=== PATIENT | female | born 1995 | race Caucasian/White ===

== ENCOUNTER 2016-04-18 14:27 | Inpatient (IN) | payer OTHER ==
[2016-04-18] MEDS ORDERED: LIDOCAINE 1% (PF) 10 MG/ML (30 ML SDV) SQ PRN (15:00)
[2016-04-18] MEDS ORDERED: METHYLERGONOVINE 0.2 MG/ML 1 ML AMP IM PRN (15:00)
[2016-04-18] MEDS ORDERED: CARBOPROST TROMETHAMINE 250 MCG/ML 1 ML AMP IM PRN (15:00)
[2016-04-18] MEDS ORDERED: OXYTOCIN 30 UNITS/500 ML NS 30 UNIT in SALINE 1 500ML.BAG IV SCH (15:00)
[2016-04-18] MEDS ORDERED: OXYTOCIN 10 UNIT/ML 1 ML VIAL IM PRN (15:00)
[2016-04-18] MEDS ORDERED: TERBUTALINE 1 MG/ML VIAL SQ PRN (15:00)
[2016-04-18 15:19] LABS: Appearance,Urine Clear (Clear); Bilirubin,Urine Negative (Negative); Glucose,Urine (UA) Negative (Negative); Ketones,Urine Negative (Negative); Leukocyte Esterase,Urine Negative (Negative); Nitrite,Urine Negative (Negative); Protein,Urine Negative (Negative); UA Billing (MACRO vs. MICRO) CHEM; Urobilinogen,Urine <2.0 mg/dL (<2.0)
[2016-04-18 15:31] LABS: ALT 28 U/L (9-52); AST 19 U/L (14-36); Blood Urea Nitrogen 8 mg/dL (7-17); LDH 401 U/L (313-618); Non-African American GFR(MDRD) >60 (>60 ml/min/1.73 sqM); Uric Acid 5.8 mg/dL (3.7-7.4)
[2016-04-18 15:47] LABS: Basophils % (A) 0 %; CH 26.9; CHCM 33.2; Eosinophils # (A) 0.1 k/uL (0-0.7); Eosinophils % (A) 1 %; HCT 37.7 % (34.0-46.0); HDW 2.71; HGB 12.4 gm/dL (11.4-16.0); Luc # (Auto) 0.21; Luc % (Auto) 2; Lymphocytes # (A) 1.1 k/uL (1.0-4.8); Lymphocytes % (A) 9 %; MCH 26.7 pg (25.0-35.0); MCHC 32.8 g/dL (31.0-37.0); MCV 81.2 fL (80.0-100.0); Mean Platelet Volume 7.2; Monocytes # (A) 0.6 k/uL (0-1.0); Monocytes % (A) 5 %; Neutrophils # (A) 9.6 k/uL (1.3-7.7); Neutrophils % (A) 83 %; RBC 4.64 m/uL (3.80-5.40); RDW 13.9 % (11.5-15.5); WBC 11.6 k/uL (3.8-10.6); WBC (Perox) 12.61
[2016-04-18 16:03] LABS: INR 0.9 (<1.1); Partial Thromboplastin Time 24.4 sec (22.0-30.0); Prothrombin Time 9.5 sec (9.0-12.0)
[2016-04-18] MEDS: LACTATED RINGERS 1,000 ML IV SCH ×2 (16:05→22:50)
[2016-04-18 17:37] VITALS: BMI 44.3
--- NOTE | 2016-04-18 18:26 | P.HPOB ---
History of Present Illness H&P Date: 04/18/16 Chief Complaint: Induction of labor 20 year old presents at 38 weeks for induction of labor. She has Gestational hypertension and by ACOG guidelines should be delivered at this time. She has also been complaining of headaches but had not protein in her urine. HEr cervix is 1-2/70/-2 and she is not kelli. heart tones 135 -140 with moderate variability and reactive. Review of Systems All systems: negative Constitutional: Denies chills, Denies fever Eyes: denies blurred vision, denies pain Ears, nose, mouth and throat: Denies headache, Denies sore throat Cardiovascular: Denies chest pain, Denies shortness of breath Respiratory: Denies cough Gastrointestinal: Denies abdominal pain, Denies diarrhea, Denies nausea, Denies vomiting Genitourinary: Denies dysuria, Denies hematuria Musculoskeletal: Denies myalgias Integumentary: Denies pruritus, Denies rash Neurological: Denies numbness, Denies weakness Psychiatric: Denies anxiety, Denies depression Endocrine: Denies fatigue, Denies weight change Past Medical History Past Medical History: No Reported History Additional Past Medical History / Comment(s): Obstetric history: This is her first and she's had care with me since 13 weeks gestation. Her blood type is O+, antibodies negative, rubella immune, RPR nonreactive, hepatitis B-, HIV nonreactive. She had a normal anatomy ultrasound and her 1 hour glucose tolerance test was abnormal, her three-hour was normal. GBS negative. Over the last 3 weeks she started to have increasing blood pressures of 140s over 70s and today had 150/88. She has been complaining of headaches over the last several days but all preeclamptic labs are normal. History of Any Multi-Drug Resistant Organisms: None Reported Past Surgical History: Cholecystectomy, Orthopedic Surgery (Bone tumor removed, benign) Past Anesthesia/Blood Transfusion Reactions: No Reported Reaction Past Psychological History: No Psychological Hx Reported Smoking Status: Former smoker - Past Family History Mother Family Medical History: Diabetes Mellitus, Hypertension Medications and Allergies Home Medications Medication Instructions Recorded Confirmed Type Pnv with Ca,No.72/Iron/FA 1 each PO 04/18/16 History [ Plus Tablet] Allergies Allergy/AdvReac Type Severity Reaction Status Date / Time No Known Allergies Allergy Verified 04/18/16 14:33 Exam Osteopathic Statement: *. No significant issues noted on an osteopathic structural exam other than those noted in the History and Physical/Consult. - Vital Signs Vital signs: Vital Signs Temp Pulse Resp BP Pulse Ox 04/18/16 15:34 97.0 F L 68 16 147/74 99 Intake and Output 04/18/16 04/18/16 04/18/16 06:59 14:59 22:59 Other: Weight 128.367 kg 128.367 kg Patient Weight 04/19/16 06:59 Weight 128.367 kg Heart: Regular rate and rhythm Lungs: Clear to auscultation bilaterally Abdomen: Soft, nontender Extremities: Negative Homans sign Results Result Diagrams: 04/18/16 15:07 04/18/16 15:05 Abnormal Lab Results - Last 24 Hours (Table) 04/18/16 Range/Units 15:07 WBC 11.6 H (3.8-10.6) k/uL Neutrophils # 9.6 H (1.3-7.7) k/uL Assessment and Plan (1) Gestational hypertension Status: Acute Plan: 1. Induction of labor with amniotomy and Pitocin 2. Anticipate normal vaginal delivery
[2016-04-19] MEDS ORDERED: AMPICILLIN 2,000 MG in SODIUM CHLORIDE 0.9% 100 ML IVPB ONE (03:00)
[2016-04-19] MEDS ORDERED: BUTORPHANOL 1 MG/ML 1 ML VIAL IV PRN (03:13)
[2016-04-19] MEDS ORDERED: BUPIVACAINE (PF) 0.25% 30 ML VIAL ONE (05:02)
[2016-04-19] MEDS ORDERED: fentaNYL (PF) 50 MCG/ML 5 ML AMP ONE (05:02)
[2016-04-19] MEDS ORDERED: SODIUM CHLORIDE 0.9% 100 ML BAG ONE (05:02)
[2016-04-19] MEDS: LACTATED RINGERS 1,000 ML IV SCH (05:08)
[2016-04-19] MEDS ORDERED: HYDROCORTISONE 2.5% RECTAL CREAM 30 GM TUBE RECTAL PRN (06:30)
[2016-04-19] MEDS ORDERED: ACETAMINOPHEN TAB 325 MG TAB PO PRN (06:30)
[2016-04-19] MEDS ORDERED: diphenhydrAMINE 50 MG/ML 1 ML VIAL IVP PRN ×2 (06:30)
[2016-04-19] MEDS ORDERED: Acetaminophen-Codeine 300-30mg TAB PO PRN ×2 (06:30)
[2016-04-19] MEDS ORDERED: OXYTOCIN 30 UNITS/500 ML NS 30 UNIT in SALINE 1 500ML.BAG IV SCH (06:30)
[2016-04-19] MEDS ORDERED: diphenhydrAMINE 25 MG CAP PO PRN (06:30)
[2016-04-19] MEDS ORDERED: SIMETHICONE 80 MG CHEWABLE PO PRN (06:30)
[2016-04-19] MEDS ORDERED: ZOLPIDEM 5 MG TAB PO PRN (06:30)
[2016-04-19] MEDS ORDERED: WITCH HAZEL 1 EACH MED..PAD TOPICAL PRN (06:30)
[2016-04-19] MEDS ORDERED: diphenhydrAMINE 50 MG CAP PO PRN (06:30)
[2016-04-19] MEDS ORDERED: LANOLIN CREAM 5 GM TUBE TOPICAL PRN (06:30)
[2016-04-19] MEDS ORDERED: BENZOCAINE/MENTHOL SPRAY 1 GM/SPRAY AEROSOL TOPICAL PRN (06:30)
--- NOTE | 2016-04-19 06:33 | P.PROBDLV ---
Vaginal Delivery Note - . Vaginal Delivery Note: 20-year-old presents at 38 weeks to my office with elevated blood pressures. Her blood pressures had been elevated the last few weeks and she started to complain of headaches. Due to gestational hypertension and ACOG guidelines she was sent over to the hospital for induction of labor. Her cervix was 2 centers dilated, 70% effaced, -2 station. She is not kelli. heart tones 135-140 with moderate variability and reactive. Amniotomy was performed at 1500, clear fluid noted. Pitocin was also started. She progressed slowly throughout the night and next morning. She did get an epidural and was comfortable. Her cervix was completely dilated at 5:51 AM. She pushed, and delivered a viable female infant at 6:11 AM over midline episiotomy under epidural anesthesia. Head delivered OA, nuchal cord 1 easily reduced, anterior shoulder delivered gentle downward traction followed by posterior shoulder and rest of body. Nose and mouth bulb suctioned, cord clamped and cut, placed mother's abdomen. Apgars 8, 9, weight 6 lbs. 14 oz. Placenta delivered spontaneously, intact with three-vessel cord. The vagina, cervix, perineum inspected. Second degree midline episiotomy was repaired with 2-0 Vicryl and 3-0 Vicryl. Estimated blood loss 150 mL. Mother and baby in stable condition.
[2016-04-19] MEDS ORDERED: AMPICILLIN 1,000 MG in SODIUM CHLORIDE 0.9% 50 ML IVPB SCH (07:00)
[2016-04-19] MEDS: SENNOSIDES-DOCUSATE SODIUM 1 EACH TAB PO SCH ×2 (08:09→21:23)
[2016-04-19] MEDS: IBUPROFEN 600 MG TAB PO PRN ×3 (08:09→21:23)
[2016-04-20] MEDS: IBUPROFEN 600 MG TAB PO PRN (04:15)
--- NOTE | 2016-04-20 08:51 | P.DS ---
Providers Date of admission: 04/18/16 15:00 Expected date of discharge: 04/20/16 Attending physician: Rachael Wood Primary care physician: Stated None - Discharge Diagnosis(es) (1) Gestational hypertension Current Visit: Yes Status: Resolved (2) Normal vaginal delivery Current Visit: Yes Status: Acute Hospital Course: Patient presented to my office with elevated blood pressures. She does have gestational hypertension and underwent a induction of labor for this. She had a normal vaginal delivery an uncomplicated course. She'll be discharged home day #1 in stable condition to follow-up with me in 6 weeks. Plan - Discharge Summary New Discharge Prescriptions: Ibuprofen [Motrin] 600 mg PO Q6HR PRN #30 tab PRN Reason: Mild Pain Or Fever >= 100.5 Discharge Medication List Pnv with Ca,No.72/Iron/FA [ Plus Tablet] 1 each PO 04/18/16 [History] Ibuprofen [Motrin] 600 mg PO Q6HR PRN #30 tab 04/20/16 [Rx] Follow up Appointment(s)/Referral(s): Rachael Wood DO [Doctor of Osteopathic Medicine] - 6 Weeks Discharge Disposition: HOME SELF-CARE
[2016-04-20 08:55] VITALS: BP 136/72; PULSE 63; RESP 16; TEMP 97.7
[2016-04-20] MEDS: SENNOSIDES-DOCUSATE SODIUM 1 EACH TAB PO SCH (09:00)
[2016-04-20] MEDS ORDERED: DIPH,PERTUS(ACELL)TETVAC-LF 0.5 ML VIAL IM ONE (09:40)
== END 2016-04-20 12:18 | disposition home or self-care (01) | DRG 775 ==
LOC: FBPOP 14:27 → 4FBP 15:00
PROVIDERS: ADMIT Obstetrics & Gynecology; ATTEND Obstetrics & Gynecology
PROC: 10E0XZZ Delivery of Products of Conception, External Approach (ICD-10-PCS; principal; 2016-04-19)
PROC: 3E033VJ Introduction of Other Hormone into Peripheral Vein, Percutaneous Approach (ICD-10-PCS; 2016-04-19)
PROC: 10907ZC Drainage of Amniotic Fluid, Therapeutic from Products of Conception, Via Natural or Artificial Opening (ICD-10-PCS; 2016-04-19)
PROC: 0W8NXZZ Division of Female Perineum, External Approach (ICD-10-PCS; 2016-04-19)
PROC: 00HU33Z Insertion of Infusion Device into Spinal Canal, Percutaneous Approach (ICD-10-PCS; 2016-04-19)
DX: O13.4 Gestational [pregnancy-induced] hypertension without significant proteinuria, complicating childbirth (principal); O69.81X0 Labor and delivery complicated by cord around neck, without compression, not applicable or unspecified; Z37.0 Single live birth; Z3A.38 38 weeks gestation of pregnancy; Z87.891 Personal history of nicotine dependence; Z82.49 Family history of ischemic heart disease and other diseases of the circulatory system
CPT/HCPCS: 59025; 81003; 82565; 83615; 84450; 84460; 84520; 84550; 85025; 85610; 85730; 88307; 90715; 99213

== ENCOUNTER 2016-10-28 14:24 | Emergency (ER) | payer OTHER ==
[2016-10-28 14:39] VITALS: BP 146/77; PULSE 67; RESP 20; TEMP 96.9
[2016-10-28] MEDS ORDERED: CYCLOBENZAPRINE 10MG STARTER 3 TAB BTL PO STA (14:52)
--- NOTE | 2016-10-28 15:00 | ED ---
General Adult HPI - General Chief complaint: Back Pain/Injury Stated complaint: back and hip pain Time Seen by Provider: 10/28/16 14:51 Source: patient, RN notes reviewed Mode of arrival: wheelchair Limitations: no limitations - History of Present Illness Initial comments: Patient 21-year-old female with significant past medical history for chronic back pain, who presents emergency room today with a chief complaint of exacerbation of chronic pain. She states that she has had similar symptoms in the past. States woke up this morning had increased tightness in her back is worse with certain movements. She states she felt some pain shot down the right leg. Denies any bowel or bladder incontinence retention. She does admit that she did take one of her [place] that she uses for her chronic back pain with some relief of the symptoms. She denies any bowel or bladder incontinence retention. Denies any saddle anesthesia. Denies any other complaints or symptoms at this time. Patient denies any injury or trauma. Patient denies any recent fever, chills, shortness of breath, chest pain, abdominal pain, nausea or vomiting, numbness or tingling, dysuria or hematuria, constipation or diarrhea, headaches or visual changes, or any other complaints. - Related Data Home Medications Medication Instructions Recorded Confirmed Pnv,Calcium 72/Iron/Folic Acid 1 each PO 04/18/16 [ Plus Tablet] Previous Rx's Medication Instructions Recorded Ibuprofen [Motrin] 600 mg PO Q6HR PRN #30 tab 04/20/16 Cyclobenzaprine [Flexeril] 10 mg PO TID #20 tab 10/28/16 Allergies Allergy/AdvReac Type Severity Reaction Status Date / Time No Known Allergies Allergy Verified 10/28/16 14:39 Review of Systems ROS Statement: Those systems with pertinent positive or pertinent negative responses have been documented in the HPI. ROS Other: All systems not noted in ROS Statement are negative. Past Medical History Past Medical History: No Reported History Additional Past Medical History / Comment(s): Obstetric history: This is her first and she's had care with me since 13 weeks gestation. Her blood type is O+, antibodies negative, rubella immune, RPR nonreactive, hepatitis B-, HIV nonreactive. She had a normal anatomy ultrasound and her 1 hour glucose tolerance test was abnormal, her three-hour was normal. GBS negative. Over the last 3 weeks she started to have increasing blood pressures of 140s over 70s and today had 150/88. She has been complaining of headaches over the last several days but all preeclamptic labs are normal. History of Any Multi-Drug Resistant Organisms: None Reported Past Surgical History: Cholecystectomy, Orthopedic Surgery Past Anesthesia/Blood Transfusion Reactions: No Reported Reaction Past Psychological History: No Psychological Hx Reported Smoking Status: Former smoker Past Alcohol Use History: None Reported Past Drug Use History: None Reported - Past Family History Mother Family Medical History: Diabetes Mellitus, Hypertension General Exam - General Exam Comments Initial Comments: General: The patient is awake and alert, in no distress, and does not appear acutely ill. Eye: Pupils are equal, round and reactive to light, extra-ocular movements are intact. No nystagmus. There is normal conjunctiva bilaterally. No signs of icterus. Ears, nose, mouth and throat: There are moist mucous membranes and no oral lesions. Neck: The neck is supple, there is no tenderness or JVD. Cardiovascular: There is a regular rate and rhythm. No murmur, rub or gallop is appreciated. Respiratory: Lungs are clear to auscultation, respirations are non-labored, breath sounds are equal. No wheezes, stridor, rales, or rhonchi. Gastrointestinal: Soft, non-distended, non-tender abdomen without masses or organomegaly noted. There is no rebound or guarding present. No CVA tenderness. Bowel sounds are unremarkable. Musculoskeletal: Normal ROM, no tenderness. Strength 5/5. Sensation intact. Pulses equal bilaterally 2+. Neurological: A&O x 3. CN II-XII intact, There are no obvious motor or sensory deficits. Coordination appears grossly intact. Speech is normal. Skin: Skin is warm and dry and no rashes or lesions are noted. Psychiatric: Cooperative, appropriate mood & affect, normal judgment. Limitations: no limitations Course Vital Signs 10/28/16 14:36 Temperature 96.9 F L Pulse Rate 67 Respiratory 20 Rate Blood Pressure 146/77 O2 Sat by Pulse 99 Oximetry Disposition Clinical Impression: Acute low back pain Disposition: HOME SELF-CARE Instructions: Acute Low Back Pain (ED) Additional Instructions: Please use medication as discussed. Please follow-up with family doctor in the next 2 days of symptoms have not improved. Please return to emergency room if the symptoms increase or worsen or for any other concerns. Prescriptions: Cyclobenzaprine [Flexeril] 10 mg PO TID #20 tab Referrals: Mathew Moreno DO [Primary Care Provider] - 1-2 days Time of Disposition: 14:59
== END 2016-10-28 15:04 | disposition home or self-care (01) ==
LOC: EC 14:24
DX: M54.5 Low back pain (principal); Z90.49 Acquired absence of other specified parts of digestive tract; Z79.899 Other long term (current) drug therapy; Z87.891 Personal history of nicotine dependence
CPT/HCPCS: 99283

== ENCOUNTER 2018-12-03 21:08 | Emergency (ER) | payer BC, OTHER ==
[2018-12-03 22:26] VITALS: BP 126/76; PULSE 69; TEMP 98.5
[2018-12-03] MEDS ORDERED: HYDROcodone/APAP 5-325MG 1 EACH TAB PO STA (22:56)
[2018-12-03] MEDS ORDERED: DIAZEPAM 5 MG/ML 2 ML INJ IM ONE (22:56)
[2018-12-03 22:57] VITALS: RESP 18
--- NOTE | 2018-12-03 22:57 | ED ---
Back Pain HPI - General Chief Complaint: Back Pain/Injury Stated Complaint: Hip/Back Pain Time Seen by Provider: 12/03/18 22:25 Source: patient Limitations: no limitations - History of Present Illness Initial Comments: 23-year-old female presenting today for chief complaint of low back pain with radiation down right leg x 6 hours. She states earlier today she was attempting to prevent her hair in a pony tail when - Related Data Home Medications Medication Instructions Recorded Confirmed Pnv,Calcium 72/Iron/Folic Acid 1 each PO 04/18/16 [ Plus Tablet] Previous Rx's Medication Instructions Recorded Ibuprofen [Motrin] 600 mg PO Q6HR PRN #30 tab 04/20/16 Cyclobenzaprine [Flexeril] 10 mg PO TID #20 tab 10/28/16 Cyclobenzaprine [Flexeril] 10 mg PO TID PRN 7 Days #21 tab 12/03/18 Allergies Allergy/AdvReac Type Severity Reaction Status Date / Time No Known Allergies Allergy Verified 12/03/18 22:26 Review of Systems ROS Statement: Those systems with pertinent positive or pertinent negative responses have been documented in the HPI. ROS Other: All systems not noted in ROS Statement are negative. Past Medical History Past Medical History: No Reported History Additional Past Medical History / Comment(s): Obstetric history: This is her first and she's had care with me since 13 weeks gestation. Her blood type is O+, antibodies negative, rubella immune, RPR nonreactive, hepatitis B-, HIV nonreactive. She had a normal anatomy ultrasound and her 1 hour glucose tolerance test was abnormal, her three-hour was normal. GBS negative. Over the last 3 weeks she started to have increasing blood pressures of 140s over 70s and today had 150/88. She has been complaining of headaches over the last several days but all preeclamptic labs are normal. History of Any Multi-Drug Resistant Organisms: None Reported Past Surgical History: Cholecystectomy, Orthopedic Surgery Past Anesthesia/Blood Transfusion Reactions: No Reported Reaction Past Psychological History: No Psychological Hx Reported Smoking Status: Former smoker Past Alcohol Use History: None Reported Past Drug Use History: None Reported - Past Family History Mother Family Medical History: Diabetes Mellitus, Hypertension General Exam - General Exam Comments Initial Comments: General: The patient is awake and alert, in no distress, and does not appear acutely ill. Eye: Pupils are equal, round and reactive to light, extra-ocular movements are intact. No nystagmus. There is normal conjunctiva bilaterally. No signs of icterus. Ears, nose, mouth and throat: There are moist mucous membranes and no oral lesions. Neck: The neck is supple, there is no tenderness or JVD. Cardiovascular: There is a regular rate and rhythm. No murmur, rub or gallop is appreciated. Respiratory: Lungs are clear to auscultation, respirations are non-labored, breath sounds are equal. No wheezes, stridor, rales, or rhonchi. Gastrointestinal: [Soft, non-distended, non-tender abdomen without masses or organomegaly noted. There is no rebound or guarding present. No CVA tenderness. Bowel sounds are unremarkable.] Musculoskeletal: Normal ROM, no tenderness. Strength 5/5. Sensation intact. Pulses equal bilaterally 2+. Neurological: A&O x 3. CN II-XII intact, There are no obvious motor or sensory deficits. Coordination appears grossly intact. Speech is normal. Skin: Skin is warm and dry and no rashes or lesions are noted. Psychiatric: Cooperative, appropriate mood & affect, normal judgment. Limitations: no limitations Course Vital Signs 12/03/18 22:23 Temperature 98.5 F Pulse Rate 69 Respiratory 18 Rate Blood Pressure 126/76 O2 Sat by Pulse 98 Oximetry Disposition Clinical Impression: Back strain, Low back pain, Acute exacerbation of chronic low back pain Disposition: HOME SELF-CARE Condition: Good Instructions (If sedation given, give patient instructions): Acute Low Back Pain (ED) Additional Instructions: Please use medication as discussed. Please follow-up with family doctor in the next 2 days. Please return to emergency room if the symptoms increase or worsen or for any other concerns. Prescriptions: Cyclobenzaprine [Flexeril] 10 mg PO TID PRN 7 Days #21 tab PRN Reason: Muscle Spasm Is patient prescribed a controlled substance at d/c from ED?: No Referrals: None,Stated [Primary Care Provider] - 1-2 days Time of Disposition: 23:57
--- NOTE | 2018-12-03 23:54 | XR ---
EXAMINATION TYPE: XR lumbar spine 2 or 3V DATE OF EXAM: 12/03/2018 COMPARISON: NONE HISTORY: Back pain TECHNIQUE: 3 views FINDINGS: Lumbar vertebra have normal alignment. Posterior elements are intact. There is no compressi on fracture. Sacroiliac joints appear normal. I see no bony destructive process. IMPRESSION: Negative lumbar spine exam. No fracture.
== END 2018-12-04 01:56 | disposition home or self-care (01) ==
LOC: EC 21:08
DX: S39.012A Strain of muscle, fascia and tendon of lower back, initial encounter (principal); G89.29 Other chronic pain; Z87.891 Personal history of nicotine dependence; X58.XXXA Exposure to other specified factors, initial encounter
CPT/HCPCS: 72100; 99283; 96372; J3360

== ENCOUNTER 2024-03-11 12:01 | Emergency (ER) | payer BC ==
[2024-03-11 12:08] VITALS: RESP 18
--- NOTE | 2024-03-11 12:15 | ED ---
Abdominal Pain HPI - General Source: patient, RN notes reviewed Mode of arrival: ambulatory Limitations: no limitations - History of Present Illness MD Complaint: abdominal pain <Tuyet Green - Last Filed: 03/11/24 12:13> <Gely Perrin - Last Filed: 03/15/24 00:01> - General Chief Complaint: Abdominal Pain Stated Complaint: Pelvic pain Time Seen by Provider: 03/11/24 12:05 - History of Present Illness Initial Comments: Quick Note: This is a 28-year-old female who presents to the emergency department for pelvic pain. Patient has a longstanding history of pelvic pain due to an ovarian cyst. States that this last measured around 8 cm. She is supposed to have this removed in April, but was told to come to the emergency department if the pain got worse. States that the pain got acutely worse last night. She has associated nausea. (Tuyet Green) 28-year-old female presenting with chief complaint of pelvic pain. Patient has a history of pelvic pain due to ovarian cyst. She is supposed to have surgery in April for this issue. She came in today because the pain was getting much worse. Started getting worse last night. She has nausea with no vomiting. No vaginal bleeding or abnormal discharge. No fevers or chills. No dysuria or hematuria. No flank pain. (Gely Perrin) - Related Data Home Medications Medication Instructions Recorded Confirmed Pnv,Calcium 72/Iron/Folic Acid 1 each PO 04/18/16 [ Plus Tablet] Previous Rx's Medication Instructions Recorded Ibuprofen [Motrin] 600 mg PO Q6HR PRN #30 tab 04/20/16 Cyclobenzaprine [Flexeril] 10 mg PO TID #20 tab 10/28/16 Cyclobenzaprine [Flexeril] 10 mg PO TID PRN 7 Days #21 tab 12/03/18 HYDROcodone/APAP 5-325MG [[place] 1 tab PO Q6HR PRN 3 Days #12 tab 03/11/24 5-325] Ondansetron Odt [Zofran Odt] 4 mg PO Q8HR PRN #20 tab 03/11/24 Allergies Allergy/AdvReac Type Severity Reaction Status Date / Time No Known Allergies Allergy Verified 03/11/24 12:08 Review of Systems ROS Other: All systems not noted in ROS Statement are negative. <Tuyet Green - Last Filed: 03/11/24 12:13> ROS Other: All systems not noted in ROS Statement are negative. <Gely Perrin - Last Filed: 03/15/24 00:01> ROS Statement: Those systems with pertinent positive or pertinent negative responses have been documented in the HPI. Past Medical History Past Medical History: No Reported History Additional Past Medical History / Comment(s): Obstetric history: This is her first and she's had care with me since 13 weeks gestation. Her blood type is O+, antibodies negative, rubella immune, RPR nonreactive, hepatitis B-, HIV nonreactive. She had a normal anatomy ultrasound and her 1 hour glucose tolerance test was abnormal, her three-hour was normal. GBS negative. Over the last 3 weeks she started to have increasing blood pressures of 140s over 70s and today had 150/88. She has been complaining of headaches over the last several days but all preeclamptic labs are normal. History of Any Multi-Drug Resistant Organisms: None Reported Past Surgical History: Cholecystectomy, Orthopedic Surgery Past Anesthesia/Blood Transfusion Reactions: No Reported Reaction Past Psychological History: No Psychological Hx Reported Past Alcohol Use History: None Reported Past Drug Use History: None Reported - Past Family History Mother Family Medical History: Diabetes Mellitus, Hypertension <Tuyet Green - Last Filed: 03/11/24 12:13> General Exam Limitations: no limitations <Tuyet Green - Last Filed: 03/11/24 12:13> Limitations: no limitations General appearance: alert, in no apparent distress Head exam: Present: atraumatic, normocephalic, normal inspection Eye exam: Present: normal appearance, EOMI Neck exam: Present: normal inspection. Absent: meningismus Respiratory exam: Present: normal lung sounds bilaterally. Absent: respiratory distress, wheezes, rales, rhonchi, stridor Cardiovascular Exam: Present: regular rate, normal rhythm, normal heart sounds. Absent: systolic murmur, diastolic murmur, rubs, gallop, clicks GI/Abdominal exam: Present: soft, tenderness. Absent: distended, guarding, rebound, rigid Neurological exam: Present: alert, oriented X3 Psychiatric exam: Present: normal affect, normal mood Skin exam: Present: warm, dry, normal color <Gely Perrin - Last Filed: 03/15/24 00:01> - General Exam Comments Initial Comments: Visual Physical Exam Vital signs reviewed General: Well-appearing, nontoxic, no acute distress. Head: Normocephalic, atraumatic Eyes: PERRLA, EOMI ENT: Airway patent Chest: Nonlabored breathing Skin: No visual rash, normal skin tone Neuro: Alert and oriented 3 Musculoskeletal: No gross abnormalities (Tuyet Green) Course Vital Signs 03/11/24 03/11/24 12:06 18:19 Temperature 98.1 F 98.3 F Pulse Rate 92 50 L Respiratory 18 18 Rate Blood Pressure 173/105 100/62 O2 Sat by Pulse 98 98 Oximetry Medical Decision Making <Tuyet Green - Last Filed: 03/11/24 12:13> - Lab Data Result diagrams: 03/11/24 15:14 03/11/24 13:46 <Gely Perrin - Last Filed: 03/15/24 00:01> - Medical Decision Making I performed the QuickNote portion of this chart. Signed Tuyet Green PA-C. (Tuyet Green) Was pt. sent in by a medical professional or institution (MOLINA Burger, YARDAGE TUFTING MACHINE OPERATOR, urgent care, hospital, or half-way...) When possible be specific @ -No Did you speak to anyone other than the patient for history (EMS, parent, family, police, friend...)? What history was obtained from this source @ -No Did you review nursing and triage notes (agree or disagree)? Why? @ -I reviewed and agree with nursing and triage notes Were old charts reviewed (outside hosp., previous admission, EMS record, old EKG, old radiological studies, urgent care reports/EKG's, half-way records)? Report findings @ -No old charts were reviewed Differential Diagnosis (chest pain, altered mental status, abdominal pain women, abdominal pain men, vaginal bleeding, weakness, fever, dyspnea, syncope, headach e, dizziness, GI bleed, back pain, seizure, CVA, palpatations, mental health, musculoskeletal)? @ -MDM Differential Abdominal Pain Women: Appendicitis, Cholecystitis, diverticulosis, ischemic bowel, pancreatitis, hepatitis, UTI, gastroenteritis, AAA, incarcerated hernia, bowel obstruction, constipation, inflammatory bowel, hepatitis, peptic ulcer disease, splenic infarction, perforated viscus, vulvitis, ovarian torsion, PID, kidney stone, placenta abruption... This is not meant to be an all-inclusive list EKG interpreted by me (3pts min.). @ -As above X-rays interpreted by me (1pt min.). @ -None done CT interpreted by me (1pt min.). @ -CT shows mild diverticulosis without acute diverticulitis. Mild fatty alteration liver. Anterior abdominal wall hernia containing mesenteric fat in the periumbilical region. Adnexal cysts U/S interpreted by me (1pt. min.). @ -Ultrasound shows posterior uterine fibroid. Right ovarian follicles no large cyst identified no evidence for torsion What testing was considered but not performed or refused? (CT, X-rays, U/S, labs)? Why? @ -None What meds were considered but not given or refused? Why? @ -None Did you discuss the management of the patient with other professionals (professionals i.e. , PA, YARDAGE TUFTING MACHINE OPERATOR, lab, RT, psych nurse, social media content manager, livestock feeder, teacher, hazard mitigation officer, case hardener)? Give summary @ -No Was smoking cessation discussed for >3mins.? @ -No Was critical care preformed (if so, how long)? @ -No Were there social determinants of health that impacted care today? How? (Homelessness, low income, unemployed, alcoholism, drug addiction, transportation, low edu. Level, literacy, decrease access to med. care, fci, rehab)? @ -No Was there de-escalation of care discussed even if they declined (Discuss DNR or withdrawal of care, Hospice)? DNR status @ -No What co-morbidities impacted this encounter? (DM, HTN, Smoking, COPD, CAD, Cancer, CVA, ARF, Chemo, Hep., AIDS, mental health diagnosis, sleep apnea, morbid obesity)? @ -None Was patient admitted / discharged? Hospital course, mention meds given and route, prescriptions, significant lab abnormalities, going to OR and other pertinent info. @ -28-year-old female presenting chief complaint of right-sided pelvic pain. History of ovarian cysts. Workup was initiated by triage. Patient is later placed in a hallway bed and evaluated by myself. Lab work is grossly unremarkable. Ultrasound is negative for torsion. CT is obtained which shows no obstructive uropathy or appendicitis. Patient reports improvement in her pain. She is provided with pain medication for home and will follow-up with her HOUSE PIPING INSPECTOR. Follow-up with PCP. Report back to ER with any new or worsening symptoms. Discussed return parameters and answered all questions. Patient conveyed verbal understanding and agreed to the plan. I discussed this case in detail with my attending Dr. Ayala Undiagnosed new problem with uncertain prognosis? @ -No Drug Therapy requiring intensive monitoring for toxicity (Heparin, Nitro, Insulin, Cardizem)? @ -No Were any procedures done? @ -No Diagnosis/symptom? @ -Ovarian cyst, pelvic pain Acute, or Chronic, or Acute on Chronic? @ -Acute Uncomplicated (without systemic symptoms) or Complicated (systemic symptoms)? @ -Uncomplicated text Side effects of treatment? @ -No Exacerbation, Progression, or Severe Exacerbation? @ -No Poses a threat to life or bodily function? How? (Chest pain, [place], CA, pneumonia, PE, COPD, DKA, ARF, appy, cholecystitis, CVA, Diverticulitis, Homicidal, Suicidal, threat to staff... and all critical care pts) @ -Unlikely (Gely Perrin) - Lab Data Lab Results 03/11/24 03/11/24 03/11/24 Range/Units 13:46 13:46 15:14 WBC 9.8 (3.8-10.6) k/uL RBC 4.77 (3.80-5.40) m/uL Hgb 12.9 (11.4-16.0) gm/dL Hct 39.6 (34.0-46.0) % MCV 83.0 (80.0-100.0) fL MCH 27.1 (25.0-35.0) pg MCHC 32.7 (31.0-37.0) g/dL RDW 13.1 (11.5-15.5) % Plt Count 249 (150-450) k/uL MPV 7.5 Neutrophils % 73 % Lymphocytes % 17 % Monocytes % 6 % Eosinophils % 2 % Basophils % 0 % Neutrophils # 7.2 (1.3-7.7) k/uL Lymphocytes # 1.7 (1.0-4.8) k/uL Monocytes # 0.6 (0-1.0) k/uL Eosinophils # 0.2 (0-0.7) k/uL Basophils # 0.0 (0-0.2) k/uL Sodium 138 (137-145) mmol/L Potassium 4.3 (3.5-5.1) mmol/L Chloride 104 (98-107) mmol/L Carbon Dioxide 23 (22-30) mmol/L Anion Gap 11 mmol/L BUN 12 (7-17) mg/dL Creatinine 0.77 (0.52-1.04) mg/dL Est GFR (CKD-EPI)AfAm >90 (>60 ml/min/1.73 sqM) Est GFR (CKD-EPI)NonAf >90 (>60 ml/min/1.73 sqM) Glucose 89 (74-99) mg/dL Plasma Lactic Acid [place] 1.1 (0.7-2.0) mmol/L Calcium 9.3 (8.4-10.2) mg/dL Total Bilirubin 0.3 (0.2-1.3) mg/dL AST 30 (14-36) U/L ALT 30 (4-34) U/L Alkaline Phosphatase 55 (38-126) U/L Total Protein 8.1 (6.3-8.2) g/dL Albumin 4.6 (3.5-5.0) g/dL Urine Color Urine Appearance (Clear) Urine pH (5.0-8.0) Ur Specific [place] (1.001-1.035) Urine Protein (Negative) Urine Glucose (UA) (Negative) Urine Ketones (Negative) Urine Blood (Negative) Urine Nitrite (Negative) Urine Bilirubin (Negative) Urine Urobilinogen (<2.0) mg/dL Ur Leukocyte Esterase (Negative) Urine HCG, Qual (Not Detectd) 03/11/24 03/11/24 Range/Units 15:26 15:26 WBC (3.8-10.6) k/uL RBC (3.80-5.40) m/uL Hgb (11.4-16.0) gm/dL Hct (34.0-46.0) % MCV (80.0-100.0) fL MCH (25.0-35.0) pg MCHC (31.0-37.0) g/dL RDW (11.5-15.5) % Plt Count (150-450) k/uL MPV Neutrophils % % Lymphocytes % % Monocytes % % Eosinophils % % Basophils % % Neutrophils # (1.3-7.7) k/uL Lymphocytes # (1.0-4.8) k/uL Monocytes # (0-1.0) k/uL Eosinophils # (0-0.7) k/uL Basophils # (0-0.2) k/uL Sodium (137-145) mmol/L Potassium (3.5-5.1) mmol/L Chloride (98-107) mmol/L Carbon Dioxide (22-30) mmol/L Anion Gap mmol/L BUN (7-17) mg/dL Creatinine (0.52-1.04) mg/dL Est GFR (CKD-EPI)AfAm (>60 ml/min/1.73 sqM) Est GFR (CKD-EPI)NonAf (>60 ml/min/1.73 sqM) Glucose (74-99) mg/dL Plasma Lactic Acid [place] (0.7-2.0) mmol/L Calcium (8.4-10.2) mg/dL Total Bilirubin (0.2-1.3) mg/dL AST (14-36) U/L ALT (4-34) U/L Alkaline Phosphatase (38-126) U/L Total Protein (6.3-8.2) g/dL Albumin (3.5-5.0) g/dL Urine Color Colorless Urine Appearance Clear (Clear) Urine pH 6.5 (5.0-8.0) Ur Specific [place] 1.019 (1.001-1.035) Urine Protein Negative (Negative) Urine Glucose (UA) Negative (Negative) Urine Ketones Negative (Negative) Urine Blood Negative (Negative) Urine Nitrite Negative (Negative) Urine Bilirubin Negative (Negative) Urine Urobilinogen <2.0 (<2.0) mg/dL Ur Leukocyte Esterase Negative (Negative) Urine HCG, Qual Not Detected (Not Detectd) Disposition <Tuyet Green - Last Filed: 03/11/24 12:13> Is patient prescribed a controlled substance at d/c from ED?: No Time of Disposition: 18:07 <Gely Perrin - Last Filed: 03/15/24 00:01> Clinical Impression: Ovarian cyst Disposition: HOME SELF-CARE Condition: Good Instructions (If sedation given, give patient instructions): Ovarian Cyst (ED) Additional Instructions: Follow-up with HOUSE PIPING INSPECTOR. Report back to ER with any new or worsening symptoms. Prescriptions: HYDROcodone/APAP 5-325MG [[place] 5-325] 1 tab PO Q6HR PRN 3 Days #12 tab PRN Reason: Pain Ondansetron Odt [Zofran Odt] 4 mg PO Q8HR PRN #20 tab PRN Reason: Nausea Referrals: Jasmin Resendiz DO [Primary Care Provider] - 1-2 days
[2024-03-11 14:15] LABS: ALT 30 U/L (4-34); AST 30 U/L (14-36); African American GFR (CKD) >90 (>60 ml/min/1.73 sqM); Albumin 4.6 g/dL (3.5-5.0); Alkaline Phosphatase 55 U/L (38-126); Anion Gap 11 mmol/L; Blood Urea Nitrogen 12 mg/dL (7-17); Calcium 9.3 mg/dL (8.4-10.2); Carbon Dioxide 23 mmol/L (22-30); Chloride 104 mmol/L (98-107); Glucose 89 mg/dL (74-99); Non-African American GFR(CKD) >90 (>60 ml/min/1.73 sqM); Potassium 4.3 mmol/L (3.5-5.1); Sodium 138 mmol/L (137-145); Total Bilirubin 0.3 mg/dL (0.2-1.3); Total Protein 8.1 g/dL (6.3-8.2)
--- NOTE | 2024-03-11 14:35 | US ---
EXAMINATION TYPE: US transvaginal DATE OF EXAM: 03/11/2024 COMPARISON: Pelvis 2013 CLINICAL INDICATION: Female, 28 years old with history of Right sided pelvic pain; Patient states she has an 8cm right ovarian cyst that is scheduled to be removed in April 2024. TECHNIQUE: Transvaginal (TV). Transvaginal sonographic images were medically necessary to better assess the following anatomy: Doppler imaging: Color Doppler Images were obtained. Spectral doppler images were obtained. FINDINGS: Date of LMP: 02/19/24 EXAM MEASUREMENTS: Uterus: 8.3 x 4.7 x 5.4 cm Endometrial Stripe: 0.66 cm Right Ovary: 4.0 x 2.5 x 3.2 cm Left Ovary: 4.6 x 3.1 x 3.2 cm 1. Uterus: Anteverted Hypoechoic area may be a fibroid in the left posterior fundal uterus measuri ng 2.0 x 1.6 x 2.3 cm 2. Endometrium: wnl 3. Right Ovary: 2 hypoechoic areas within the ovary. 1). 1.3 x 1.0 x 1.0 cm 2). 1.3 x 1.1 x 1.4 cm. No large cyst identified. 4. Left Ovary: 2.4 x 2.4 x 2.4 cm area possibly representing cyst Spectral, color and waveform doppler imaging shows good arterial and venous flow within the ovaries ; there is no evidence for ovarian torsion. 5. Bilateral Adnexa: wnl 6. Posterior cul-de-sac: wnl IMPRESSION: 1. Posterior uterine fibroid. 2. Right ovarian follicles. No large cyst identified. [facility], , 03/11/2024 2:32 PM
[2024-03-11] MEDS: SODIUM CHLORIDE 0.9% 1,000 ML IV ONE (15:30)
[2024-03-11] MEDS: ONDANSETRON 4 MG/2 ML VIAL IVP STA (15:30)
[2024-03-11] MEDS: MORPHINE SULFATE 4 MG/ML SYRINGE IVP STA (15:30)
[2024-03-11 15:41] LABS: Basophils % (A) 0 %; Eosinophils # (A) 0.2 k/uL (0-0.7); Eosinophils % (A) 2 %; HCT 39.6 % (34.0-46.0); HGB 12.9 gm/dL (11.4-16.0); Lymphocytes # (A) 1.7 k/uL (1.0-4.8); Lymphocytes % (A) 17 %; MCH 27.1 pg (25.0-35.0); MCHC 32.7 g/dL (31.0-37.0); Mean Platelet Volume 7.5; Monocytes # (A) 0.6 k/uL (0-1.0); Monocytes % (A) 6 %; Neutrophils # (A) 7.2 k/uL (1.3-7.7); Neutrophils % (A) 73 %; Platelet Count 249 k/uL (150-450); RBC 4.77 m/uL (3.80-5.40); RDW 13.1 % (11.5-15.5); WBC 9.8 k/uL (3.8-10.6)
[2024-03-11 15:52] LABS: Appearance,Urine Clear (Clear); Bilirubin,Urine Negative (Negative); Blood,Urine Negative (Negative); Color,Urine Colorless; Glucose,Urine (UA) Negative (Negative); Ketones,Urine Negative (Negative); Leukocyte Esterase,Urine Negative (Negative); Nitrite,Urine Negative (Negative); PH, Urine 6.5 (5.0-8.0); Protein,Urine Negative (Negative); Specific Gravity,Urine 1.019 (1.001-1.035); Urobilinogen,Urine <2.0 mg/dL (<2.0)
--- NOTE | 2024-03-11 17:04 | CT ---
EXAMINATION TYPE: CT abdomen pelvis w con DATE OF EXAM: 03/11/2024 4:52 PM COMPARISON: None. CLINICAL INDICATION: Female, 28 years old with history of RLQ pain, Pelvic pain, due for surgery for ovarian cyst in Apr but was told to seek care if she got worse. TECHNIQUE: Axial images were obtained from above the diaphragm to the pubic rami in the axial plane a t 5 mm thick sections. Reconstructed images are reviewed on the computer in the coronal plane. CONTRAST: 100 ml mL of Isovue 300. Study performed without Oral Contrast DLP: 2646.6 mGycm, Automated exposure control for dose reduction was used. FINDINGS: Limited CT sections are obtained the lung bases. The lung bases are clear. CT ABDOMEN: Liver: Mild fatty infiltration of liver is present. No discrete masses. Spleen: Normal Pancreas: Normal Adrenal glands: The adrenal glands are normal. Gallbladder: Prior cholecystectomy. Kidneys: No masses are evident. No hydronephrosis is present. No cysts are present. Delayed images were obtained through the kidneys, which remain unremarkable. Aorta: Vascular calcification is within the aorta. Inferior vena cava: Normal. CT PELVIS: There is a periumbilical hernia with an opening of 1.2 cm containing mesenteric fat. No lo ops of bowel are involved. Noncontrast imaging through the small bowel loops and colon appear unremarkable. Few scattered divert iculi are present without acute diverticulitis. Appendix: Normal as visualized. No adjacent inflammatory changes or dilated tubular structures. Urinary bladder: Normal. Genitourinary structures: Uterus appears normal. Several cystic areas are the bilateral ovaries. The largest on the left measures 1.9 cm. The largest on the right measures 1.6 cm transverse. Osseous structures: No suspicious lytic or sclerotic lesions. IMPRESSION: 1. Mild diverticulosis without acute diverticulitis. 2. Mild fatty alteration liver. 3. Anterior abdominal wall hernia containing mesenteric fat in the periumbilical region. 4. Adnexal cysts [facility], , 03/11/2024 5:01 PM
[2024-03-11] MEDS: KETOROLAC 15 MG/ML 1 ML VIAL IVP STA (17:20)
[2024-03-11 18:21] VITALS: BP 100/62; PULSE 50; TEMP 98.3
== END 2024-03-11 18:20 | disposition home or self-care (01) ==
LOC: EC 12:01
DX: N83.201 Unspecified ovarian cyst, right side (principal); K43.9 Ventral hernia without obstruction or gangrene
CPT/HCPCS: 36415; 80053; 83605; 85025; 81003; 81025; 93975; 76830; 74177; 99284; 96374; 96375 ×2; 96361; J2270; J2405; J1885; Q9967